=== PATIENT | female | born 1995 | race Caucasian/White ===

== ENCOUNTER 2019-02-09 04:46 | Emergency (ER) | payer MEDICAID ==
[~2019-02-09] VITALS: Ht 162.6 cm; Wt 49.6 kg
--- NOTE | 2019-02-09 05:01 | NUR ---
PT HAVING PAIN TO EPIGASTRIC REGION RADIATING TO BACK, HURTS TO TAKE A DEEP BREATH. DENIES LOWER ABDOMINAL PAIN. DENIES N/V/D. PHYSICIAN AT BEDSIDE. UPDATED ON POC
[2019-02-09] MEDS ORDERED: PANTOPRAZOLE 20MG TABLET ONE (05:05)
[2019-02-09] MEDS ORDERED: MAALOX/HYOSCYAMINE/LIDOCAINE 45 ML BTL ONE (05:05)
--- NOTE | 2019-02-09 05:18 | NUR ---
MEDICATED PER EMAR. URINE SAMPLE OBTAINED. UPDATED ON POC
[2019-02-09] MEDS ORDERED: PANTOPRAZOLE 20MG TABLET PO ONE (05:30)
[2019-02-09] MEDS ORDERED: MAALOX/HYOSCYAMINE/LIDOCAINE 45 ML BTL PO ONE (05:30)
[2019-02-09 05:32] LABS: BASOPHILS # (AUTO) 0.03 x10^3/uL (0-0.1); BASOPHILS % (AUTO) 0 % (0-1); EOSINOPHILS # (AUTO) 0.06 x10^3/uL (0-0.4); EOSINOPHILS % (AUTO) 1 % (1-7); LYMPHOCYTES # (AUTO) 1.11 x10^3/uL (1-3.4); LYMPHOCYTES % (AUTO) 15 % (22-44); MD NO; MEAN CORPUSCULAR HEMOGLOBIN 34.7 pg (27.0-34.8); MEAN CORPUSCULAR HGB CONC 33.5 g/dL (32.4-35.8); MEAN CORPUSCULAR VOLUME 103.5 fL (80-100); MEAN PLATELET VOLUME 7.6 fL (7.4-10.4); MONOCYTES # (AUTO) 0.48 x10^3/uL (0.2-0.8); MONOCYTES % (AUTO) 7 % (2-9); NEUTROPHILS # (AUTO) 5.58 x10^3/uL (1.8-6.8); NEUTROPHILS % (AUTO) 77 % (42-75); PLATELET COUNT 246 x10^3/uL (130-400); RED CELL DISTRIBUTION WIDTH 14.1 % (9.6-15.2)
[2019-02-09 05:36] LABS: MICROSCOPIC AUTO
[2019-02-09 05:40] LABS: CULTURE INDICATED? YES
[2019-02-09 05:46] LABS: ALANINE AMINOTRANSFERASE 34 U/L (12-78); ALBUMIN 4.2 g/dL (3.4-5.0); ANION GAP 8 mmol/L (5-15); CALCIUM 8.8 mg/dL (8.5-10.1); CHLORIDE 104 mmol/L (98-107); CREATININE 0.89 mg/dL (0.55-1.02)
[2019-02-09 05:51] LABS: ALKALINE PHOSPHATASE 48 U/L (45-117); BILIRUBIN,TOTAL 1.2 mg/dL (0.2-1.0); TOTAL PROTEIN 7.6 g/dL (6.4-8.2)
[2019-02-09] MEDS ORDERED: ONDANSETRON 2MG/ML, 2ML ONE (05:59)
[2019-02-09] MEDS ORDERED: ONDANSETRON 2MG/ML, 2ML IVPush ONE (06:00)
[2019-02-09] MEDS ORDERED: MORPHINE SULFATE 4 MG/ML, 1ML ONE (06:00)
[2019-02-09] MEDS ORDERED: MORPHINE SULFATE 4 MG/ML, 1ML IVPush PRN (06:00)
[2019-02-09] MEDS ORDERED: SODIUM CHLORIDE FLUSH 10ML SYR IVF ONE (06:00)
--- NOTE | 2019-02-09 06:02 | NUR ---
PT RESTING. STATES "SHE FEELS WORSE MEDICINE DID NOT HELP AND SHE ALSO VOMITED." PHYSICIAN UPDATED, NEW ORDERS RECIEVED.
--- NOTE | 2019-02-09 06:10 | NUR ---
PT MEDICATED FOR NAUSEA AND PAIN PER EMAR. TAKEN FOR ULTRASOUND
--- NOTE | 2019-02-09 06:32 | NUR ---
BACK FROM ULTRASOUND
--- NOTE | 2019-02-09 06:48 | NUR ---
RECEIVED BEDSIDE REPORT FROM LUCAS MARTINEZ. PT SLEEPING ON [facility]. FAMILY BEDSIDE.
--- NOTE | 2019-02-09 07:30 | NUR ---
ASSUMED CARE FOR DISCHARGE. PT GIVEN RX AND DISCHARGE INSTRUCTIONS. PT VERBALIZED UNDERSTANDING. PT UP AMBULATORY AND STABLE ON FEET WITH FAMILY.
[2019-02-09 07:31] VITALS: BP 112/74
== END 2019-02-09 07:33 | disposition home or self-care (01) ==
LOC: ED 05:19
DX: K29.00 Acute gastritis without bleeding (principal)
CPT/HCPCS: 36415; 71045; 76700; 80053; 81001; 83690; 84703; 85025; 86677; 87086; 93005; 96374; 96375; 99284; J2405

== ENCOUNTER 2019-04-13 06:06 | Observation (INO) | payer MEDICAID ==
[~2019-04-13] VITALS: Ht 162.6 cm; Wt 51.0 kg
[2019-04-13] MEDS ORDERED: SODIUM CHLORIDE FLUSH 10ML SYR IVF ONE (06:30)
[2019-04-13 07:08] LABS: BASOPHILS # (AUTO) 0.03 x10^3/uL (0-0.1); BASOPHILS % (AUTO) 0 % (0-1); EOSINOPHILS # (AUTO) 0.11 x10^3/uL (0-0.4); EOSINOPHILS % (AUTO) 1 % (1-7); LYMPHOCYTES # (AUTO) 0.99 x10^3/uL (1-3.4); LYMPHOCYTES % (AUTO) 9 % (22-44); MD NO; MEAN CORPUSCULAR HEMOGLOBIN 35.5 pg (27.0-34.8); MEAN CORPUSCULAR HGB CONC 33.3 g/dL (32.4-35.8); MEAN CORPUSCULAR VOLUME 106.8 fL (80-100); MEAN PLATELET VOLUME 7.3 fL (7.4-10.4); MONOCYTES # (AUTO) 0.76 x10^3/uL (0.2-0.8); MONOCYTES % (AUTO) 7 % (2-9); NEUTROPHILS # (AUTO) 9.55 x10^3/uL (1.8-6.8); NEUTROPHILS % (AUTO) 84 % (42-75); PLATELET COUNT 266 x10^3/uL (130-400); RED BLOOD COUNT 3.73 x10^6/uL (3.82-5.3); RED CELL DISTRIBUTION WIDTH 13.9 % (9.6-15.2)
[2019-04-13 07:18] LABS: ANION GAP 10 mmol/L (5-15); CHLORIDE 105 mmol/L (98-107); CREATININE 0.91 mg/dL (0.55-1.02)
[2019-04-13 07:36] LABS: AMPHETAMINE SCREEN, URINE Negative (Negative); BARBITURATE SCREEN, URINE Negative (Negative); BENZODIAZEPINE SCREEN, URINE Negative (Negative); CANNABINOID SCREEN, URINE Positive (Negative); COCAINE SCREEN, URINE Positive (Negative); METHADONE SCREEN, URINE Negative (Negative); OPIATE SCREEN, URINE Negative (Negative)
[2019-04-13] MEDS ORDERED: LORazepam 2 MG/ML, 1ML ONE (07:46)
[2019-04-13 09:00] VITALS: BP 120/68
[2019-04-13] MEDS ORDERED: NS + 20MEQ KCL 1,000 ML IV SCH (09:51)
[2019-04-13] MEDS ORDERED: ENALAPRILAT 1.25 MG/ML, 2ML IVPush PRN (10:00)
[2019-04-13] MEDS ORDERED: DOCUSATE 100 MG CAPSULE PO PRN (10:00)
[2019-04-13] MEDS ORDERED: BISACODYL 10 MG SUPP PR PRN (10:00)
[2019-04-13] MEDS ORDERED: ONDANSETRON ODT 4 MG PO PRN (10:00)
[2019-04-13] MEDS ORDERED: KETOROLAC 30 MG/1 ML IV PRN (10:00)
[2019-04-13] MEDS ORDERED: METHOCARBAMOL 500 MG TABLET PO PRN (10:00)
[2019-04-13] MEDS ORDERED: POLYETHYLENE GLYCOL 17 GM PACKET PO PRN (10:00)
[2019-04-13] MEDS ORDERED: LABETALOL 5 MG/ML SYRINGE IVPush PRN (10:00)
[2019-04-13] MEDS ORDERED: ONDANSETRON 2MG/ML, 2ML IVPush PRN (10:00)
[2019-04-13] MEDS: ACETAMINOPHEN 325 MG TABLET PO PRN ×2 (10:21→17:08)
[2019-04-13] MEDS: LEVETIRACETAM 500 MG TABLET PO SCH ×2 (10:21→20:46)
[2019-04-13] MEDS ORDERED: PLEASE ENTER HEIGHT AND WEIGHT MC SCH (10:30)
[2019-04-13] MEDS ORDERED: LORazepam 2 MG/ML, 1ML IVPush PRN (10:30)
[2019-04-13 11:13] LABS: MICROSCOPIC AUTO
[2019-04-13 11:14] LABS: CULTURE INDICATED? YES
[2019-04-13 12:23] LABS: HEMOGLOBIN A1C 4.4 % (4.2-6.3)
[2019-04-13] MEDS ORDERED: POTASSIUM PHOSPHATE 44 MEQ in SODIUM CHLORIDE 0.9% 500 ML IV ONE (12:30)
[2019-04-13 13:15] VITALS: BP 112/78
[2019-04-13 19:31] VITALS: BP 106/68
[2019-04-13] MEDS ORDERED: MELATONIN 5 MG TABLET PO PRN (20:30)
[2019-04-14 03:00] VITALS: BP 94/61
[2019-04-14 06:14] LABS: BASOPHILS # (AUTO) 0.03 x10^3/uL (0-0.1); BASOPHILS % (AUTO) 0 % (0-1); EOSINOPHILS # (AUTO) 0.06 x10^3/uL (0-0.4); EOSINOPHILS % (AUTO) 1 % (1-7); LYMPHOCYTES # (AUTO) 0.94 x10^3/uL (1-3.4); LYMPHOCYTES % (AUTO) 12 % (22-44); MD NO; MEAN CORPUSCULAR HEMOGLOBIN 35.8 pg (27.0-34.8); MEAN CORPUSCULAR HGB CONC 33.5 g/dL (32.4-35.8); MEAN PLATELET VOLUME 7.9 fL (7.4-10.4); MONOCYTES # (AUTO) 0.62 x10^3/uL (0.2-0.8); MONOCYTES % (AUTO) 8 % (2-9); NEUTROPHILS # (AUTO) 6.38 x10^3/uL (1.8-6.8); NEUTROPHILS % (AUTO) 80 % (42-75); PLATELET COUNT 228 x10^3/uL (130-400); RED BLOOD COUNT 3.69 x10^6/uL (3.82-5.3); RED CELL DISTRIBUTION WIDTH 14.4 % (9.6-15.2)
[2019-04-14 06:24] LABS: ANION GAP 10 mmol/L (5-15); CALCIUM 8.4 mg/dL (8.5-10.1); CHLORIDE 105 mmol/L (98-107)
[2019-04-14 06:25] LABS: CREATININE 0.83 mg/dL (0.55-1.02)
[2019-04-14 08:27] VITALS: BP 107/64
[2019-04-14] MEDS: LEVETIRACETAM 500 MG TABLET PO SCH (08:29)
[2019-04-14] MEDS ORDERED: LEVE500T53 PO (16:47)
== END 2019-04-14 17:05 | disposition home or self-care (01) ==
LOC: ED 08:00 → EDIP 08:39 → INTOOBSV 08:39 → 4EST 08:56
PROVIDERS: ADMIT Internal Medicine; ATTEND Internal Medicine
DX: R56.9 Unspecified convulsions (principal); R11.2 Nausea with vomiting, unspecified; D72.829 Elevated white blood cell count, unspecified; E87.6 Hypokalemia; F19.10 Other psychoactive substance abuse, uncomplicated; R73.9 Hyperglycemia, unspecified; D75.89 Other specified diseases of blood and blood-forming organs; M54.5 Low back pain; Z88.0 Allergy status to penicillin
CPT/HCPCS: 36415; 70450; 70551; 80048; 80307; 81001; 82040; 82607; 83036; 83735; 84100; 84145; 84443; 84703; 85025; 87086; 93005; 95819; 96365; 96366; 96368; 96375; 99284; G0378; J1885; J3480; J7040; Q0162

== ENCOUNTER 2020-01-22 14:11 | Outpatient (CLI) | payer MEDICAID ==
[~2020-01-22] VITALS: Ht 162.6 cm; Wt 61.0 kg
[~2020-01-22 14:11] MED LIST: LEVE500T53 PO
[2020-01-22 15:16] LABS: AMPHETAMINE SCREEN, URINE Negative (Negative); BARBITURATE SCREEN, URINE Negative (Negative); BENZODIAZEPINE SCREEN, URINE Negative (Negative); CANNABINOID SCREEN, URINE Positive (Negative); COCAINE SCREEN, URINE Negative (Negative); METHADONE SCREEN, URINE Negative (Negative); OPIATE SCREEN, URINE Negative (Negative)
== END 2020-01-22 15:40 | disposition home or self-care (01) ==
LOC: LDOP 14:11
PROVIDERS: ATTEND Obstetrics & Gynecology
DX: O44.52 Low lying placenta with hemorrhage, second trimester (principal); Z3A.24 24 weeks gestation of pregnancy
CPT/HCPCS: 76817; 80307; 99211; G0463

== ENCOUNTER 2020-05-10 14:48 | Outpatient (CLI) | payer MEDICAID ==
[~2020-05-10] VITALS: Ht 162.6 cm; Wt 64.5 kg
[2020-05-11] MEDS ORDERED: FENTANYL PF 100 MCG/2ML ONE (01:10)
[2020-05-11] MEDS ORDERED: PNV1TABL97 PO (20:30)
== END 2020-05-10 23:59 | disposition home or self-care (01) ==
LOC: LDOP 14:48
PROVIDERS: ATTEND Obstetrics & Gynecology
DX: O46.93 Antepartum hemorrhage, unspecified, third trimester (principal); Z3A.40 40 weeks gestation of pregnancy
CPT/HCPCS: 59025

== ENCOUNTER 2020-05-11 00:15 | Inpatient (IN) | payer MEDICAID ==
[~2020-05-11] VITALS: Ht 162.6 cm; Wt 65.0 kg
[2020-05-11] MEDS ORDERED: D5%-LACTATED RINGERS 1,000 ML IV SCH (00:28)
[2020-05-11] MEDS ORDERED: LACTATED RINGERS 1,000 ML IV SCH (00:28)
[2020-05-11] MEDS ORDERED: OXYTOCIN 30U/ 0.9% NaCL 500ML 500 ML IV PRN (00:28)
[2020-05-11] MEDS ORDERED: OXYTOCIN 30U/ 0.9% NaCL 500ML 500 ML IV ONE (00:28)
[2020-05-11] MEDS ORDERED: FENTANYL PF 100 MCG/2ML IVPush PRN (00:30)
[2020-05-11] MEDS ORDERED: METOCLOPRAMIDE 5 MG/ML, 2ML IVPush PRN (00:30)
[2020-05-11] MEDS ORDERED: FENTANYL PF 100 MCG/2ML IV PRN (00:30)
[2020-05-11] MEDS ORDERED: ALUMINUM/MAG/SIMETHICONE 30 ML UDC PO PRN (00:30)
[2020-05-11] MEDS ORDERED: ONDANSETRON 2MG/ML, 2ML IVPush PRN (00:30)
[2020-05-11] MEDS ORDERED: TERBUTALINE 1 MG/ML, 1ML IVPush PRN (00:30)
[2020-05-11] MEDS ORDERED: TERBUTALINE 1 MG/ML, 1ML SQ PRN (00:30)
[2020-05-11] MEDS ORDERED: SODIUM CITRATE/CITRIC ACID 30 ML UDC PO PRN (00:30)
[2020-05-11] MEDS ORDERED: CALCIUM CARBONATE 500 MG TAB.CHEW PO PRN (00:30)
[2020-05-11] MEDS ORDERED: NEWBORN KIT ONE (00:39)
[2020-05-11] MEDS ORDERED: OXYTOCIN 30U/ 0.9% NaCL 500ML 500 ML ONE ×2 (00:39→03:11)
[2020-05-11 00:52] LABS: BASOPHILS # (AUTO) 0.05 x10^3/uL (0-0.1); BASOPHILS % (AUTO) 0 % (0-1); EOSINOPHILS # (AUTO) 0.07 x10^3/uL (0-0.4); EOSINOPHILS % (AUTO) 1 % (1-7); LYMPHOCYTES # (AUTO) 1.61 x10^3/uL (1-3.4); LYMPHOCYTES % (AUTO) 14 % (22-44); MD NO; MEAN CORPUSCULAR HEMOGLOBIN 33.4 pg (27.0-34.8); MEAN CORPUSCULAR HGB CONC 33.5 g/dL (32.4-35.8); MEAN CORPUSCULAR VOLUME 99.7 fL (80-100); MEAN PLATELET VOLUME 8.3 fL (7.4-10.4); MONOCYTES # (AUTO) 0.62 x10^3/uL (0.2-0.8); MONOCYTES % (AUTO) 5 % (2-9); NEUTROPHILS # (AUTO) 9.01 x10^3/uL (1.8-6.8); NEUTROPHILS % (AUTO) 79 % (42-75); PLATELET COUNT 262 x10^3/uL (130-400); RED BLOOD COUNT 3.96 x10^6/uL (3.82-5.3); RED CELL DISTRIBUTION WIDTH 13.6 % (9.6-15.2)
[2020-05-11 01:38] LABS: AMPHETAMINE SCREEN, URINE Negative (Negative); BARBITURATE SCREEN, URINE Negative (Negative); BENZODIAZEPINE SCREEN, URINE Negative (Negative); CANNABINOID SCREEN, URINE Positive (Negative); COCAINE SCREEN, URINE Negative (Negative); METHADONE SCREEN, URINE Negative (Negative); OPIATE SCREEN, URINE Negative (Negative)
[2020-05-11] MEDS: IBUPROFEN 600 MG TABLET PO PRN ×4 (03:10→23:09)
[2020-05-11] MEDS: HYDROcodone/APAP 5/325 TABLET PO PRN ×4 (03:10→23:09)
[2020-05-11] MEDS ORDERED: HYDROcodone/APAP 5/325 TABLET ONE (03:11)
[2020-05-11] MEDS ORDERED: IBUPROFEN 600 MG TABLET ONE (03:11)
[2020-05-11] MEDS: OXYTOCIN 30U/ 0.9% NaCL 500ML 500 ML IV SCH ×3 (03:20→23:28)
[2020-05-11] MEDS ORDERED: BISACODYL 10 MG SUPP PR PRN (03:30)
[2020-05-11] MEDS ORDERED: HYDROcodone/APAP 5/325 TABLET PO PRN (03:30)
[2020-05-11] MEDS ORDERED: SIMETHICONE 80 MG CHEW TAB PO PRN (03:30)
[2020-05-11] MEDS ORDERED: ACETAMINOPHEN 325 MG TABLET PO PRN (03:30)
[2020-05-11] MEDS ORDERED: MISOPROSTOL 200 MCG TABLET PR PRN (03:30)
[2020-05-11] MEDS ORDERED: ONDANSETRON 2MG/ML, 2ML IV PRN (03:30)
[2020-05-11 04:30] VITALS: BP 105/61
[2020-05-11 09:00] VITALS: BP 131/84
[2020-05-11] MEDS: PRENATAL VIT/IRON/FA 1 EACH TABLET PO SCH (09:00)
[2020-05-11] MEDS: DOCUSATE 100 MG CAPSULE PO PRN ×2 (09:25→23:09)
[2020-05-11 11:10] LABS: MEAN CORPUSCULAR HEMOGLOBIN 32.4 pg (27.0-34.8); MEAN CORPUSCULAR VOLUME 101.5 fL (80-100); MEAN PLATELET VOLUME 8.1 fL (7.4-10.4); PLATELET COUNT 234 x10^3/uL (130-400); RED BLOOD COUNT 3.45 x10^6/uL (3.82-5.3); RED CELL DISTRIBUTION WIDTH 13.5 % (9.6-15.2)
[2020-05-11 11:49] LABS: BASOPHILS # (AUTO) 0.01 x10^3/uL (0-0.1); BASOPHILS % (AUTO) 0 % (0-1); EOSINOPHILS # (AUTO) 0.04 x10^3/uL (0-0.4); EOSINOPHILS % (AUTO) 0 % (1-7); LYMPHOCYTES # (AUTO) 1.51 x10^3/uL (1-3.4); LYMPHOCYTES % (AUTO) 9 % (22-44); MD SCAN; MONOCYTES % (AUTO) 7 % (2-9); NEUTROPHILS # (AUTO) 13.56 x10^3/uL (1.8-6.8); NEUTROPHILS % (AUTO) 84 % (42-75)
[2020-05-11 13:03] VITALS: BP 110/72
[2020-05-11 17:00] VITALS: BP 109/73
[2020-05-11 19:35] VITALS: BP 93/60
[2020-05-11] MEDS ORDERED: PNV1TABL97 PO (20:30)
[2020-05-11 23:30] VITALS: BP 97/62
[2020-05-12] MEDS: HYDROcodone/APAP 5/325 TABLET PO PRN ×2 (03:17→08:35)
[2020-05-12] MEDS ORDERED: IBUP-1223 PO (08:10)
[2020-05-12] MEDS ORDERED: HYDR-3240 PO (08:12)
[2020-05-12 08:30] VITALS: BP 103/74
[2020-05-12] MEDS: PRENATAL VIT/IRON/FA 1 EACH TABLET PO SCH (08:35)
[2020-05-12] MEDS: IBUPROFEN 600 MG TABLET PO PRN (08:35)
[2020-05-12] MEDS: DOCUSATE 100 MG CAPSULE PO PRN (08:35)
== END 2020-05-12 13:05 | disposition home or self-care (01) | DRG 806 ==
LOC: LDOP 00:15 → LDIP 00:26 → 2NW 04:15
PROVIDERS: ADMIT Obstetrics & Gynecology; ATTEND Obstetrics & Gynecology
PROC: 10E0XZZ Delivery of Products of Conception, External Approach (ICD-10-PCS; principal; 2020-05-11)
PROC: 0HQ9XZZ Repair Perineum Skin, External Approach (ICD-10-PCS; 2020-05-11)
PROC: 10907ZC Drainage of Amniotic Fluid, Therapeutic from Products of Conception, Via Natural or Artificial Opening (ICD-10-PCS; 2020-05-11)
DX: O44.03 Complete placenta previa NOS or without hemorrhage, third trimester (principal); O99.324 Drug use complicating childbirth; Z37.0 Single live birth; F12.90 Cannabis use, unspecified, uncomplicated; O70.0 First degree perineal laceration during delivery; Z80.8 Family history of malignant neoplasm of other organs or systems; Z83.3 Family history of diabetes mellitus; Z3A.40 40 weeks gestation of pregnancy
CPT/HCPCS: 36415; 80307; 85025; 86592; 86850; 86900; G0378; J3010; J2590; J7120

== ENCOUNTER 2020-12-09 15:31 | Emergency (ER) | payer MEDICAID ==
[~2020-12-09] VITALS: Ht 162.6 cm; Wt 54.5 kg
[~2020-12-09 15:31] MED LIST changes: +HYDR-1067 PO; +IBUP-1223 PO; +PNV1TABL97 PO
[2020-12-09] MEDS ORDERED: LORazepam 2 MG/ML, 1ML ONE (15:51)
[2020-12-09] MEDS ORDERED: ACETAMINOPHEN 500 MG TABLET ONE (15:51)
[2020-12-09] MEDS ORDERED: ONDANSETRON 2MG/ML, 2ML ONE (15:51)
[2020-12-09 15:56] LABS: BASOPHILS % (AUTO) 1 % (0-1); EOSINOPHILS % (AUTO) 0 % (1-7); LYMPHOCYTES % (AUTO) 6 % (22-44); MEAN CORPUSCULAR HGB CONC 33.9 g/dL (32.4-35.8); MEAN PLATELET VOLUME 7.6 fL (7.4-10.4); MONOCYTES % (AUTO) 5 % (2-9); NEUTROPHILS % (AUTO) 88 % (42-75); PLATELET COUNT 295 x10^3/uL (130-400); RED BLOOD COUNT 3.94 x10^6/uL (3.82-5.3); RED CELL DISTRIBUTION WIDTH 14.4 % (9.6-15.2)
[2020-12-09] MEDS ORDERED: ACETAMINOPHEN 325 MG TABLET ONE (15:58)
[2020-12-09] MEDS ORDERED: ACETAMINOPHEN 325 MG TABLET PO ONE (16:00)
[2020-12-09] MEDS ORDERED: ONDANSETRON 2MG/ML, 2ML IVPush ONE (16:00)
[2020-12-09] MEDS ORDERED: PLEASE ENTER HEIGHT AND WEIGHT MC SCH (16:00)
[2020-12-09] MEDS ORDERED: SODIUM CHLORIDE FLUSH 10ML SYR IVF ONE (16:00)
[2020-12-09] MEDS ORDERED: LORazepam 2 MG/ML, 1ML IVPush ONE (16:00)
[2020-12-09 16:08] LABS: ALBUMIN 4.2 g/dL (3.4-5.0); ANION GAP 12 mmol/L (5-15); CALCIUM 8.9 mg/dL (8.5-10.1); CHLORIDE 102 mmol/L (98-107); CREATININE 0.95 mg/dL (0.55-1.02)
[2020-12-09 16:25] LABS: MD NO
--- NOTE | 2020-12-09 16:48 | NUR ---
PT RESTING COMFORTABLY. VSS. SEIZURE PRECAUTIONS IN PLACE. SO AT BEDSIDE.
[2020-12-09] MEDS ORDERED: LEVETIRACETAM 500 MG TABLET PO SCH (17:30)
[2020-12-09] MEDS ORDERED: LEVETIRACETAM 500 MG TABLET PO ONE ×2 (17:30)
[2020-12-09] MEDS ORDERED: LEVETIRACETAM 500 MG TABLET ONE (17:35)
[2020-12-09 17:38] VITALS: BP 108/67
--- NOTE | 2020-12-09 17:39 | NUR ---
Patient is resting comfortably in bed. Vital Signs within normal limits.
== END 2020-12-09 18:38 | disposition home or self-care (01) ==
LOC: ED 18:10
DX: G40.409 Other generalized epilepsy and epileptic syndromes, not intractable, without status epilepticus (principal); J32.0 Chronic maxillary sinusitis
CPT/HCPCS: 36415; 70450; 70486; 80048; 82040; 84703; 85025; 93005; 96374; 96375; 99285; J2060; J2405

== ENCOUNTER 2021-01-01 14:09 | Emergency (ER) | payer MEDICAID ==
[~2021-01-01] VITALS: Ht 162.6 cm; Wt 120.0 kg
[2021-01-01] MEDS ORDERED: SODIUM CHLORIDE 0.9% 1,000ML IVBOLUS ONE (16:00)
[2021-01-01] MEDS ORDERED: THIAMINE 100 MG in SODIUM CHLORIDE 0.9% 50 ML IVPB ONE (16:00)
[2021-01-01] MEDS ORDERED: ONDANSETRON 2MG/ML, 2ML IVPush ONE (16:00)
[2021-01-01] MEDS ORDERED: SODIUM CHLORIDE FLUSH 10ML SYR IVF ONE (16:00)
[2021-01-01] MEDS ORDERED: LORazepam 2 MG/ML, 1ML IVPush PRN (16:00)
[2021-01-01] MEDS ORDERED: ONDANSETRON 2MG/ML, 2ML ONE (16:01)
[2021-01-01] MEDS ORDERED: LORazepam 2 MG/ML, 1ML ONE (16:02)
--- NOTE | 2021-01-01 16:07 | NUR ---
PT MEDICATED PER ORDERS, IV AND LABS ESTABLISHED. RESPIRATIONS EVEN AND UNLABORED.
[2021-01-01 16:30] LABS: BASOPHILS % (AUTO) 2 % (0-1); EOSINOPHILS % (AUTO) 0 % (1-7); LYMPHOCYTES % (AUTO) 7 % (22-44); MEAN CORPUSCULAR HEMOGLOBIN 35.7 pg (27.0-34.8); MEAN CORPUSCULAR HGB CONC 34.7 g/dL (32.4-35.8); MEAN PLATELET VOLUME 7.8 fL (7.4-10.4); MONOCYTES % (AUTO) 10 % (2-9); NEUTROPHILS % (AUTO) 80 % (42-75); PLATELET COUNT 241 x10^3/uL (130-400); RED BLOOD COUNT 4.12 x10^6/uL (3.82-5.3); RED CELL DISTRIBUTION WIDTH 14.6 % (9.6-15.2)
[2021-01-01 16:32] LABS: MD NO
[2021-01-01 16:38] LABS: ALANINE AMINOTRANSFERASE 96 U/L (12-78); ALBUMIN 4.4 g/dL (3.4-5.0); ANION GAP 9 mmol/L (5-15); CALCIUM 9.1 mg/dL (8.5-10.1); CHLORIDE 101 mmol/L (98-107); CREATININE 0.79 mg/dL (0.55-1.02)
[2021-01-01 16:40] LABS: ALKALINE PHOSPHATASE 72 U/L (45-117); BILIRUBIN,TOTAL 1.6 mg/dL (0.2-1.0); CREATINE KINASE, TOTAL 153 U/L (26-192); TOTAL PROTEIN 8.8 g/dL (6.4-8.2)
--- NOTE | 2021-01-01 17:00 | NUR ---
PT RESTING, VSS. MEDICATED PER ORDERS
--- NOTE | 2021-01-01 18:00 | NUR ---
PT SLEEPING, VSS. IVF INFUSED. PLAN FOR DC.
[2021-01-01 18:28] VITALS: BP 124/85
== END 2021-01-01 18:49 ==
LOC: ED 16:24
DX: R56.9 Unspecified convulsions (principal); R94.31 Abnormal electrocardiogram [ECG] [EKG]; F10.139 Alcohol abuse with withdrawal, unspecified; Y90.0 Blood alcohol level of less than 20 mg/100 ml
CPT/HCPCS: 36415; 80053; 80320; 82550; 83605; 83690; 85025; 93005; 96361; 96365; 96375; 99284; J2060; J2405; J3411; J7030; G0480